=== PATIENT | female | born 1990 | race Caucasian/White ===

== ENCOUNTER 2016-06-07 07:40 | Emergency (ER) | payer SELFPAY ==
[2016-06-07] MEDS ORDERED: PROMETHAZINE HCL 25 MG in DEXTROSE 5 % IN WATER 50 ML IV ONE ×2 (08:07)
[2016-06-07] MEDS ORDERED: NORMAL SALINE 1,000 ML IV ONE ×2 (08:07→08:46)
--- NOTE | 2016-06-07 08:11 | ERNOTE ---
Medical Problem HPI - Narrative Date of Service: 06/07/16 - General Chief Complaint: Nausea/Vomiting Time Seen by Provider: 06/07/16 08:04 Source: patient Exam Limitations: no limitations - Immun/Allergies/Home Medications Immunizations: IMMUNIZATION HX History of Influenza Vaccine No Hx Pneumococcal Vaccination No Allergies/Adverse Reactions: Allergies No Known Allergies Allergy (Unverified 06/07/16 07:48) Home Medications: HOME MEDICATIONS Promethazine HCl [Phenergan] 25 mg PO Q6H PRN #8 tablet 06/07/16 [Last Taken Unknown] - History of Present History Narrative: Patient presents to the ED for vomiting and diarrhea. She relates this started last night around 7pm. Started with vomiting. Then diarrhea developed. Abdominal "hunger" cramps at times. Denies abdominal pains now. Children had same illness but they got over it quickly. No bad food exposures. No fever she knows of. Nothing makes the Sx better or worse. No abdominal pain now. Has not seen anyone else for this. no blood in stool or vomit. Timing: constant Modifying Factors - (Improves): Present: other - nothing Modifying Factors - (Worsens): Present: other - nothing Review of Systems - Review of Systems Constitutional: Absent: fever EYE: Present: no symptoms reported ENT: Absent: sore throat Respiratory: Absent: shortness of breath Cardiology: Absent: chest pain Gastrointestinal/Abdominal: Present: See HPI Genitourinary: Absent: dysuria Musculoskeletal: Absent: back pain Skin: Absent: rash Neurological: Absent: weakness - Patient's Past Medical History Patient History - Medical: No pertinent hx Patient History - Cardiac/Respiratory: No pertinent hx Patient History - Cancer: No Hx of Cancer Patient History - Surgical Procedures: No surgical history Patient History - Other: None - Social History Living Situations: home Psych History: No pertinent hx - Immunizations Hx Pneumococcal Vaccination: No History of Influenza Vaccine: No Physical Exam - Physical Exam General Appearance: Present: alert, no apparent distress Eye Exam: Normal inspection: bilateral, PERRL: bilateral Ears, Nose, Throat: Present: normal ENT inspection Neck: Present: normal inspection Respiratory: Present: no respiratory distress, normal breath sounds, no accessory muscle use, lungs clear Cardiovascular/Chest: Present: regular rate, rhythm Gastrointestinal/Abdominal: Present: normal bowel sounds, nontender, nondistended, soft. Absent: tenderness Back Exam: Absent: CVA tenderness (R), CVA tenderness (L) Extremity Exam: Present: normal inspection Neurological Exam: Present: alert, normal mood/affect, no motor/sensory deficits , lever miller II-XII nml as tested. Absent: motor weakness Skin Exam: Absent: skin rash ED Progress - Results and Orders Patient's Lab Results:: I have reviewed the patient's lab results. - Vital Signs Patient's Vital Signs:: I have reviewed the patient's vital signs. Vital Signs: Vital Signs 06/07/16 07:45 Temperature 36.4 C L Pulse Rate 73 Respiratory 12 Rate Blood Pressure 120/95 O2 Sat by Pulse 100 Oximetry - Progress/Reassessment Chief Complaint: Nausea/Vomiting Progress:: Improved Progress Note-Subjective: 06/07/16 11:02 At 1100 she had 2L NS infused and was feeling much better. Repeat accucheck 80s without treatment. Nothing to suggest DKA or acute DM. HgbA1C ordered for follow-up. Her abdomen is non-tender. i discussed observation and further testing with her but she would like to go home. She understands risks. I offered her a CT given the elevated WBC but she declines and wishes to go home. She just moved here and has no PCP. I spoke with Dr England who is design verification engineer and he advised her to call the office tomorrow to get in to have a re-check tomorrow. I discussed this with her. I discussed warnign signs and reasons to return as well as the need for close f/u. She is stable, non-toxic, no distress. No abdominal tenderness. Clinically likely a GI illness. Departure - Departure Clinical Impression: Vomiting, Diarrhea, Dehydration Disposition: Home self-care Condition: Stable Instructions: Nausea and Vomiting, Adult, [id number] Additional Instructions: Rest. Clear liquids for [address] England's office in the morning, you need to be seen in re-check tomorrow. Return if you change your mind about having the additional testing we you were offered, develop abdominal pain, fever or if your condition worsens or changes in any way. Referrals: Luis Alberto England DO [Staff Physician] - Prescriptions: Promethazine HCl [Phenergan] 25 mg PO Q6H PRN #8 tablet PRN Reason: Vomiting
[2016-06-07 08:20] LABS: Hematocrit 49.9 % (37.0-47.0); Hemoglobin 17.5 gm/dL (12.5-16.0); Mean Cell Volume 89.7 fl (78-100); Mean Corpuscular Hemoglobin 31.5 pg (27-31); Mean Corpuscular Hgb Conc 35.1 g/dl (32-36); Neutrophil # 19.5 K/mm3 (1.3-6.0); Neutrophil % 93.6 % (42-75.0); Platelet Count 310 K/mm3 (150-450); Red Blood Count 5.56 M/mm3 (4.2-5.4); Red Cell Distribution Width 14.4 % (11.5-14.0); White Blood Count 20.9 K/mm3 (4.0-10.5)
[2016-06-07 08:25] LABS: Urine Bilirubin 1 mg/dl (NEGATIVE); Urine Blood 25 /ul (NEGATIVE); Urine Ketone Negative (NEGATIVE); Urine Nitrite Negative (NEGATIVE); Urine Protein 100 mg/dL (NEGATIVE); Urine Specific Gravity >=1.030 SP.GR. (1.005-1.010); Urine Urobilinogen Normal (NORMAL); Urine pH 5.5 pH (5.0-7.0)
[2016-06-07 08:32] LABS: Albumin * 4.7 gm/dl (3.4-5.0); Anion Gap 21.3 mmol/L (6.8-13.8); BUN/Creatinine Ratio 14.2 (9.0-21.6); Bilirubin, Total 0.6 mg/dL (0.0-1.1); Ca. Corrected For Albumin 9.6 mg/dL (8.4-10.2); Calcium * 10.5 mg/dL (7.9-10.9); Carbon Dioxide 20.9 mmol/L (24-32.6); Potassium 4.2 mmol/L (3.4-4.6)
[2016-06-07 08:33] LABS: Urine Appearance Cloudy; Urine Bacteria 1+; Urine Color Yellow; Urine WBC None Seen /hpf (0-5)
[2016-06-07 09:38] VITALS: BP 121/82
== END 2016-06-07 11:16 | disposition home or self-care (01) ==
LOC: ER 07:40
DX: E86.0 Dehydration (principal); R11.10 Vomiting, unspecified; R19.7 Diarrhea, unspecified